=== PATIENT | male | born 1995 | race Hispanic/Latino ===

== ENCOUNTER 2019-01-14 08:05 | Day surgery (SDC) | payer OTHER ==
[2019-01-10 16:56] LABS: Absolute Lymphocytes (CBC) 3.3 K/uL (0.7-4.9); Absolute Monocytes 0.4 K/uL (0.1-1.3); Absolute Neutrophil 1.7 K/uL (1.8-8.0); Basophils % 0.7 % (0-1.3); Eosinophils % 4.7 % (0-4.4); Hematocrit 42.6 % (39.6-49.0); Lymphocytes % 57.2 % (15.3-44.8); MPV 8.2 fL (7.6-11.3); Monocytes % 7.4 % (3.3-12.3)
[2019-01-14] MEDS ORDERED: Ringers Lactate 1,000 ML IV ONE (08:44)
[2019-01-14] MEDS ORDERED: CEFAZOLIN/SWI 1gm 1 GM/10 ML SYR ONE (08:44)
[2019-01-14] MEDS ORDERED: MIDAZOLAM HCL 2 MG/2 ML INJ ONE (08:52)
[2019-01-14] MEDS ORDERED: PROPOFOL 200 MG/20 ML VIAL IV ONE (08:52)
[2019-01-14] MEDS ORDERED: LIDOCAINE 2% MPF 5 ML VIAL ONE (08:53)
[2019-01-14] MEDS ORDERED: FENTANYL CITR 100 MCG/2 ML ONE ×2 (08:53→09:52)
[2019-01-14] MEDS: BUPIVACAINE 0.5% PF 10 ML VIAL ONE ×2 (09:08→09:40)
[2019-01-14] MEDS ORDERED: KETOROLAC 30 MG/ML INJ ONE (09:36)
--- NOTE | 2019-01-14 10:19 | P.BOP ---
Preoperative diagnosis: cellulitis, abscess of right first toe Postoperative diagnosis: same Primary procedure: Incision and drainage abscess of right first toe with partial nail removal Estimated blood loss: <5cc Specimen: culture , nail Findings: broken nail with abscess Anesthesia: General Complications: None Drain(s): Other Transferred to: Recovery Room Condition: Good
[2019-01-14] MEDS ORDERED: HYDROMORPHONE HCL 1 MG/ML INJ ONE (10:47)
[2019-01-14] MEDS ORDERED: CODEINE 30MG/APAP 300MG TAB ONE (11:31)
--- NOTE | 2019-01-23 04:39 | DS ---
Date of Discharge: 01/14/2019 Diagnoses: Cellulitis and abscess of right first toe with an ingrown toenail. Procedure: Incision and drainage of abscess of the right first toe with partial nail removal. Disposition: Home. Activity: As tolerated. No heavy lifting. Discharge Instructions: Follow up in my office in 1 week. Call for appointment at [phone]. Keep t he area dry for 24 hours, then after that clean with soap and water, Bactroban over the area. Medications: See orders thank you. JODI/BANDAR Voice ID: [id number] Report ID: [id number]
--- NOTE | 2019-01-23 04:55 | OP ---
Date of Procedure: 01/14/2019 Surgeon: Cem Tirado MD Preoperative Diagnosis: Cellulitis and abscess, right first toe. Postoperative Diagnosis: Cellulitis and abscess, right first toe. Procedure: Incision and drainage of abscess of the right first toe with partial nail removal. Specimen: Culture end part of the nail. Findings: Broken nail with abscess. Anesthesia: General plus local. Indication For Procedure: This is the case of a 23-year-old patient, who comes to us with abscess of the right first toe with a purulent discharge and infection. The patient has been fine i ncluding this. The benefits, alternatives, and risks of incision and drainage of abscess of the righ t foot with partial nail removal fully explained to the patient, which include, but not limited to in fection, bleeding, damage to adjacent structures, anesthesia complications, gangrene, loss of the toe , inability to grow a normal nail, VA, and even . He also understands this may not relieve any symptoms. He might need more than one surgical intervention. He understood and signed a consent. T he area of concern was marked by me and the patient in the holding room. Description Of Procedure: The patient was brought to the operating room, placed in supine position. Anesthesia was done without complication. The right foot was prepped and draped in a sterile fashio n. Local anesthetic was applied. After that, we proceeded to make an incision over the area. No pu rulent discharge. The abscess was found. Necrotic tissue was found and removed. When we did that, we noticed the nail is partially stabbing with a small piece of nail growing through the a cristal of the abscess. Apparently, the patient was trying to cut the nail, but I believe he cut the iraida l and medial into the nail creating a split and to the toe itself causing this abscess or with injury. The nail will have to be partially removed. The nail was sent as a specimen . Culture was obtained. Necrotic tissue was removed and then the area was covered with wet-to-dry d ressing. The patient tolerated the procedure well. The patient was sent to recovery room in stable condition. JODI/BANDAR Voice ID: [id number] Report ID: [id number]
== END 2019-01-14 12:11 | disposition home or self-care (01) ==
LOC: OR 08:05
PROVIDERS: ATTEND Surgery
PROC: 0HBRXZZ Excision of Toe Nail, External Approach (ICD-10-PCS; 2019-01-14)
PROC: 0J9Q0ZZ Drainage of Right Foot Subcutaneous Tissue and Fascia, Open Approach (ICD-10-PCS; principal; 2019-01-14 09:45)
DX: L02.611 Cutaneous abscess of right foot (principal); L03.031 Cellulitis of right toe; L60.8 Other nail disorders
CPT/HCPCS: 36415; 80048; 85025; 87070; 87075; 87077; 87186; 87205; 88304; 88311; J0690; J1170; J2250; J2704; J3010